=== PATIENT | female | born 1995 | race Caucasian/White ===

== ENCOUNTER 2018-03-01 12:25 | Emergency (ER) | payer MEDICAID, OTHER ==
[2018-03-01 12:45] VITALS: PULSE 83; RESP 18; TEMP 98
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
[2018-03-01 15:29] VITALS: BP 123/69
[2018-03-01 18:20] VITALS: O2SAT 98
== END 2018-03-01 15:29 | disposition home or self-care (01) ==
LOC: C.ER 12:25
DX: S00.83XA Contusion of other part of head, initial encounter (principal); Y04.0XXA Assault by unarmed brawl or fight, initial encounter; Y92.009 Unspecified place in unspecified non-institutional (private) residence as the place of occurrence of the external cause